=== PATIENT | male | born 1990 | race African-American/Black ===

== ENCOUNTER 2019-11-25 20:49 | Emergency (ER) | payer SELFPAY ==
[~2019-11-25] VITALS: Ht 167.6 cm; Wt 96.0 kg
[2019-11-25] MEDS ORDERED: IBUPROFEN 600MG TABLET PO ONE (21:30)
[2019-11-25 21:42] VITALS: BP 157/90
== END 2019-11-25 21:47 | disposition home or self-care (01) ==
LOC: ER 20:49
DX: M54.5 Low back pain (principal); Z87.828 Personal history of other (healed) physical injury and trauma; W07.XXXA Fall from chair, initial encounter; Y93.89 Activity, other specified; Y92.238 Other place in hospital as the place of occurrence of the external cause; Y99.8 Other external cause status
CPT/HCPCS: 99283